=== PATIENT | male | born 1980 | race Caucasian/White ===

== ENCOUNTER 2024-08-17 17:41 | Emergency (ER) | payer MEDICARE, OTHER, SELFPAY ==
[2024-08-17 17:43] VITALS: BP 155/121
--- NOTE | 2024-08-17 19:10 | ED.GENMED ---
History of Present Illness
General
Chief Complaint: Crisis Evaluation
Source: patient
Exam Limitations: none
Time Seen by Provider: 08/17/24 19:01
History of Present Illness
History of Present Illness:
See MDM
Past History
Past History
ED Past Medical History: Asthma, GERD and Psychiatric (Bipolar disorder)
ED Past Surgical History: Other (Zulay fundoplication)
Social History
Tobacco: Non-smoker
Alcohol: None
Drug: None
Phy Exam
Physical Exam
Physical Exam:
See MDM
Course
Orders/Labs/Results
Orders:
Orders
08/17/24 17:51
1:1 Observation - Suicide/ Violent Behavior As Directed
08/17/24 19:03
Crisis Consult Urgent
Reason for Consult: depressed
Vital Signs
Initial and Last Documented VS:
Initial Vital Signs
Temp Pulse Resp BP Pulse Ox
98.2 F 125 15 155/121 98
08/17/24 17:43 08/17/24 17:43 08/17/24 17:43 08/17/24 17:43 08/17/24 17:43
Last Documented Vital Signs
Temp Pulse Resp BP Pulse Ox
98.2 F 125 15 155/121 98
08/17/24 17:43 08/17/24 17:43 08/17/24 17:43 08/17/24 17:43 08/17/24 17:43
MDM/Problems Addressed
Differential Diagnosis Includes:
HPI and MDM Narrative:
43-year-old male presenting for crisis evaluation. Patient states he has a history of schizoaffective disorder. He claims compliance with his medicines. He states he has been having increased episodes of the past few weeks to the point where he
is scared. He states he is having trouble caring for himself and feels that people are after him. He appears to have good insight about compliance with his medications. He states he has been off his medications before and realizes how bad his
mental health can be. He understands that he needs to be on medicines for life. He has thoughts of not living but denies any plans to hurt himself. Patient states he is not homicidal. He does hear voices but this is somewhat chronic. He denies
any drug or alcohol use. Patient is interested in going inpatient
Physical exam
General: Well appearing and non-toxic
HEENT: protecting airway
Neck: appears supple
CV: No evidence of cyanosis
Resp: No accessory muscle use
Abd: Non-distended
Extremities: No deformities
Neuro: alert
Psych: Guarded affect, mild paranoia
Skin: Intact
Problems Addressed including Acute and Chronic Conditions affecting care:
1. Schizoaffective disorder
Acuity: acute on chronic
Prognosis: stable
Details: Patient seeking inpatient placement. Crisis will evaluate and go over options
Updates
Differential Diagnosis (but not limited to): Depression, schizoaffective disorder
Testing considered: UDS
Drug therapy (if applicable): OTC meds, please see d/c instruction regarding Rx drugs
Amount and/or Complexity of Data Reviewed
Clinical info obtained from: Patient
External data reviewed: N/A
Labs I independently reviewed (but not limited to): N/A
Radiology: N/A
Pulse Ox: not hypoxic
EKG independently reviewed: N/A
Retail Marketing Manager: N/A
Critical Care: N/A
Risk of Complication:
Social Determinants of health: Good social support
Discussed with other providers: Crisis
Escalation of Care includes Admit/Obs: Crisis evaluated and will search for inpatient placement
Occasional wrong word or 'sound a like' substitutions may have occurred due to the inherent limitations of voice recognition software. Read the chart carefully and recognize, using context, where substitutions have occurred.
*Critical Care Note
Total Time (30-74mins, 75-104mins- exclusive of procedures): Not Applicable
ED Attending Note
-
Portions of this chart may have been created with voice recognition software.� Occasional wrong word or��sound alike� substitutions may have occurred due to the inherent limitations of voice recognition software.
Discharge Plan
Departure
Patient Disposition: Psych Facility
Date of Disposition: 08/17/24
Time of Disposition: 19:13
Discharge Problem:
Schizoaffective disorder
Prescriptions:
No Action
No Current Medications
0
Referrals:
UNKNOWN - PT DOES,NOT KNOW [Family Provider] -
Interventions
Interventions:
*Risk Screen - Suicide Last Done: 08/17/24 17:43
*General Assessment Last Done: 08/17/24 17:43
*Neglect/Abuse Screening Last Done: 08/17/24 17:43
*ED COVID-19 Vaccine History Last Done: 08/17/24 17:43
ED-Psychological Assessment Last Done: 08/17/24 18:37
Discharge Date and Time
Print Language: VENEZUELAN
[2024-08-17 21:35] VITALS: BP 119/82
[2024-08-17] MEDS: SEROQUEL 400 MG PO (22:16)
[2024-08-17] MEDS: KLONOPIN 2 MG PO (22:17)
[2024-08-18 01:04] LABS: Amphetamines Negative (Negative); Barbiturates Negative (Negative); Benzodiazepines Positive (Negative); Buprenorphine Negative (Negative); Cocaine Negative (Negative); Marijuana Negative (Negative); Methadone Negative (Negative); Methamphetamines Negative (Negative); Opiates Negative (Negative); Phencyclidine Negative (Negative)
[2024-08-18 01:05] LABS: Tricyclic Antidepressants Positive (Negative)
[2024-08-18 01:13] LABS: Fentanyl, Urine Negative (Negative)
[2024-08-18 06:13] VITALS: BP 114/74
== END 2024-08-18 10:59 ==
LOC: EMR 17:41
PROVIDERS: EMERGENCY PHYSICIAN Student in an Organized Health Care Education/Training Program
DX: F25.9 Schizoaffective disorder, unspecified (principal)
CPT/HCPCS: 99285; 80306; 80307